=== PATIENT | female | born 1935 | race Hispanic/Latino ===

== ENCOUNTER → 2019-05-21 | Day surgery (SDC) | payer MEDICARE ==
[~2019-05-21] MED LIST: ALPRAZOLAM0.25 M1 PO; AMLODIPINE BESY10 MG PO; ATENOLOL50 MG PO; BENICAR HCT 401 EACH PO; GABAPENTIN400 MG PO; JARDIANCE25 MG PO; METFORMIN HCL500 MG PO; OMEPRAZOLE40 MG PO; OZEMPIC1 MG/0.75 SQ; PIOGLITAZONE HC45 MG PO; PRAVASTATIN SOD40 MG PO; PROPOFOL IV EMULSION 10 MG/ML 20 ML VIAL ONE; TRAZODONE HCL300 MG PO; [UNRECOGNIZED DRUG - OTHER] PO
--- OUTSIDE RECORDS SUMMARY | 2019-05-21 08:56 | XMS REPORT ---
Author Author [facility] Address Unknown Phone Unavailable Care Team Providers Care Open [employer]ar[employer] Supervisor Name Role Phone Unavailable Unavailable Problems This patient has no known problems. Allergies, Adverse Reactions, Alerts This patient has no known allergies or adverse reactions. Medications This patient has no known medications. Results Test Description Test Time Test Comments Text Results Atomic Results Result Comments SCR MAMM BILATERAL UVALDO CAD DIGITAL 2019-02-10 09:42:40 - SCR MAMM BILATERAL UVALDO CAD DIGITALBILATERAL DIGITAL SCREENING MAMMOGRAM 3D/2D WITH CAD: 02/10/2019CLINICAL: Asymptomatic. Digital breast tomosynthesis was performed in addition to routine CC and MLO views. Current mammographic images were evaluated by either a [employer] M-Vu or a [employer] ImageChecker CAD (computer aided detection system). Comparison is made to exams dated 11/22/2017 mammogram, 10/08 mammogram, and 10/05/2015 mammogram - [facility]. There are scattered fibroglandular tissues in both breasts. There are benign vascular calcifications and calcifications in both breasts. No suspicious mass, architectural distortion, malignant type calcification, or lymph node abnormality detected. Breast architecture is stable compared to prior exams.IMPRESSION: BENIGNThere is no mammographic evidence of malignancy. Resume annual screening mammography in one year. Reji Walker M.D. ss/penrad:02/10/2019 09:42:40 Slicing Machine Operator: Laurel URENA, [facility] sent: BIRADS 1-2 Normal Mammogram BI-RADS: 2 Benign
[2019-05-21 11:01] LABS: BASOPHILS # (AUTO) 0.1 (0.0-0.1); BASOPHILS % 1.5 % (0.0-1.0); EOSINOPHILS # (AUTO) 0.1 (0.0-0.4); EOSINOPHILS % 2.1 % (0.0-6.0); HEMOGLOBIN 11.8 g/dL (12.0-16.0); LYMPHOCYTES # (AUTO) 2.3 (1.0-3.2); LYMPHOCYTES % 43.7 % (18.0-39.1); MEAN CORPUSCULAR HEMOGLOBIN 32.8 pg (28-32); MEAN CORPUSCULAR HGB CONC 32.8 g/dL (31-35); MONOCYTES # (AUTO) 0.4 (0.2-0.8); MONOCYTES % 7.1 % (4.4-11.3); NEUTROPHILS # (AUTO) 2.4 (2.1-6.9); NEUTROPHILS % 45.2 % (38.7-80.0); PLATELET COUNT 221 x10e3/uL (140-360); RED CELL DISTRIBUTION WIDTH 12.9 % (11.7-14.4)
[2019-05-21 14:25] VITALS: BP 121/74
--- NOTE | 2019-05-21 21:15 | Operative Report ---
DATE OF PROCEDURE: 05/21/2019 SURGEON: Joseph Robert MD PROCEDURE PERFORMED: Esophagogastroduodenoscopy. PREOPERATIVE DIAGNOSES: Gastritis, hiatal hernia, reflux symptoms. POSTOPERATIVE DIAGNOSES: Small hiatal hernia and gastritis confined to the antrum of the stomach. PREOPERATIVE MEDICATIONS: Consisted of IV sedation administered under MAC anesthesia. DESCRIPTION OF PROCEDURE: Using Olympus GenJuice video colonoscope that was inserted in the patient's oropharynx, advanced to the hypopharynx and down into the esophagus. The mucosa and the esophagus were normal. At the distal esophagus, there was a small hiatal hernia from 37-38 cm. No evidence of obstruction. No evidence of inflammation. No evidence of reflux. The stomach was entered and insufflated with air. The mucosal pattern in the cardia, fundus, and body of the stomach showed gastritis down in the antrum, but did not involve the fundus or body of the stomach. Biopsies were obtained in the antrum looking for the H. pylori infection. The motility was normal. The pylorus was normal. It was intubated and the duodenal bulb and postbulbar duodenum were found to be within normal limits. The endoscope was then withdrawn back up to the stomach, back up into the esophagus, hypopharynx, and out of the patient's mouth and the procedure was ended. In conclusion, we have findings of a gastritis as well as a small hiatal hernia. Joseph Robert MD SAF/MODL /[id number]
== END | disposition home or self-care (01) ==
LOC: OR 08:54
PROVIDERS: ATTEND Internal Medicine Gastroenterology
DX: K21.0 Gastro-esophageal reflux disease with esophagitis (principal); K29.70 Gastritis, unspecified, without bleeding; K44.9 Diaphragmatic hernia without obstruction or gangrene; E11.9 Type 2 diabetes mellitus without complications; I10 Essential (primary) hypertension; E78.5 Hyperlipidemia, unspecified; I83.90 Asymptomatic varicose veins of unspecified lower extremity; F41.9 Anxiety disorder, unspecified; Z79.84 Long term (current) use of oral hypoglycemic drugs
CPT/HCPCS: 36415; 43239; 82948; 85025; 88305; 88312; 93005; J2704